=== PATIENT | female | born 1985 | race Caucasian/White ===

== ENCOUNTER 2021-12-26 13:07 | Emergency (ER) | payer OTHER, SELFPAY ==
--- NOTE | ~2021-12-26 | XR_ITS ---
EXAMINATION: XR knee RT min 4V DATE: 12/26/2021 13:59 INDICATION: Right knee pain, initial encounter TECHNIQUE: Four views of the right knee were obtained. COMPARISON: None. FINDINGS: Alignment is normal. There is a nondisplaced fracture of the medial tibial plateau. Joint s paces are normal with no erosions. There is a small knee joint effusion. Soft tissues are unremarkab le. IMPRESSION: 1. Nondisplaced fracture of the medial tibial plateau. Reviewed, dictated and finalized at location A.
[2021-12-26 13:30] VITALS: BP 149/82; PULSE 80; RESP 20; TEMP 36.8; O2SAT 100
--- NOTE | 2021-12-26 14:23 | ED.LOWEXIN ---
HPI - Extremity Injury (Lower) General Chief Complaint: Extremity Injury, Lower Stated Complaint: Right knee injury Time Seen by Provider: 12/26/21 14:24 Source: patient and RN notes reviewed Mode of arrival: ambulatory Limitations: no limitations History of Present Illness HPI Narrative: 36-year-old female presents with concern for right knee injury. Reports several days ago she was walking when the knee twisted. She reports lateral knee pain. Reports when she steps on it a certain way she has severe pain in the lateral knee. Reports yesterday she started wearing a knee brace. She reports she is taken Tylenol. She reports swelling. complaint: knee injury Related Data Home Medications Medication Instructions Recorded Confirmed No Home Medications 12/26/21 12/26/21 Allergies Allergy/AdvReac Type Severity Reaction Status Date / Time morphine Allergy Intermediate Itching Verified 12/26/21 14:23 Review of Systems Review of Systems: CONSTITUTIONAL: Denies malaise, chills, sweats, or fever. SKIN: Denies rash or itching, open skin, laceration, abrasion, redness, warmth MUSCULOSKELETAL: Reports left knee pain with swelling NEUROLOGIC: Denies numbness, weakness All systems reviewed & are unremarkable except as noted in HPI and below PMFSH Comments At time of signature, agree with nursing past medical, surgical, social and family history. There is no relevant family history pertinent to the presenting complaint Exam Narrative: GENERAL: Well-appearing, well-nourished, and in no acute distress. HEAD: Normocephalic EYES: PERRLA ENT: Nares clears. Mucous membranes moist. NECK: Supple. CHEST: No respiratory distress. Speaks in full sentences. HEART: Regular rate and rhythm. EXTREMITIES: Left lower extremity has grossly normal range of motion and strength and sensation. Mild edema SKIN: Warm, dry, no visible rash. NEURO: Alert and oriented x3. PSYCH: Normal mood and affect Course Course Emergency Course: Patient is aware of diagnosis, understands and agrees to treatment plan. Anticipatory guidance given. Patient agrees to follow-up as directed and is aware of reasons to seek care at the emergency department. Portions of this record may have been created with voice recognition software Level of Care: Express Care Visit Vital Signs Vital signs: Vital Signs Temperature 98.3 F 12/26/21 13:30 Pulse Rate 80 12/26/21 13:30 Respiratory Rate 20 12/26/21 13:30 Blood Pressure 149/82 H 12/26/21 13:30 Pulse Oximetry 100 12/26/21 13:30 Temperature 98.3 F 12/26/21 13:30 Pulse Rate 80 12/26/21 13:30 Respiratory Rate 20 12/26/21 13:30 Blood Pressure 149/82 H 12/26/21 13:30 Pulse Oximetry 100 12/26/21 13:30 Reviewed. MDM - Extremity Injury (Lower) MDM Narrative Medical decision making narrative: Patients injury and pain is consistent with musculoskeletal etiology. No signs of neurological or vascular compromise on exam. Compartments and tissues are soft without signs of compartment syndrome. Pain is felt appropriate for further evaluation on an outpatient basis. Imaging Data My impression: Images reviewed, interpreted by radiologist, agree, see report. Radiologist's impression: EXAMINATION: XR knee RT min 4V DATE: 12/26/2021 13:59 INDICATION: Right knee pain, initial encounter TECHNIQUE: Four views of the right knee were obtained. COMPARISON: None. FINDINGS: Alignment is normal. There is a nondisplaced fracture of the medial tibial plateau. Joint spaces are normal with no erosions. There is a small knee joint effusion. Soft tissues are unremarkable. IMPRESSION: 1. Nondisplaced fracture of the medial tibial plateau. Critical Care Time Critical Care Time Critical Care Time: No Discharge Plan Discharge Clinical Impression: Fracture of tibial plateau Qualifiers: Encounter type: initial encounter Fracture type: closed Laterality: right Qualified Code(s): S82.141A - Displaced
== END 2021-12-26 14:40 | disposition home or self-care (01) ==
PROVIDERS: Emergency Provider Nurse Practitioner
DX: S82.141A Displaced bicondylar fracture of right tibia, initial encounter for closed fracture (principal); X50.9XXA Other and unspecified overexertion or strenuous movements or postures, initial encounter; Y93.01 Activity, walking, marching and hiking
CPT/HCPCS: 73564; 99204; G0463

== ENCOUNTER 2022-10-19 09:34 | Emergency (ER) | payer OTHER, SELFPAY ==
[2022-10-19 09:56] VITALS: BP 153/106; PULSE 96; RESP 18; TEMP 36.3; O2SAT 100
--- NOTE | 2022-10-19 10:04 | ED.BACK ---
HPI - Back Pain/Injury General Chief Complaint: Back Pain/Injury Stated Complaint: Low Back Pain Time Seen by Provider: 10/19/22 10:12 Source: patient and RN notes reviewed Mode of arrival: ambulatory Limitations: no limitations History of Present Illness HPI Narrative: 37-year-old female presents concern for one-week history and low back pain. She denies any injury or trauma. She reports pain is constant. Reports it hurts to stand, hurts to sit she. She denies any significant exacerbating or relieving factors. She denies loss of bowel or bladder function, weakness in any extremity, perianal anesthesia, abdominal pain, fever. She denies dysuria, frequency, urgency. Reports chills MD elicited complaint: back pain Related Data Allergies Allergy/AdvReac Type Severity Reaction Status Date / Time morphine Allergy Intermediate Itching Verified 10/19/22 10:00 Review of Systems Review of Systems: CONSTITUTIONAL: Denies malaise, sweats, or fever. Reports chills CARDIOVASCULAR: Denies chest pain, palpitations, or edema. RESPIRATORY: Denies cough or dyspnea. GASTROINTESTINAL: Denies abdominal pain, nausea, vomiting, diarrhea, bloody, or mucous stools. Loss of bowel function GENITOURINARY: Denies dysuria, frequency, urgency or hematuria. Muscle bladder function, perianal anesthesia SKIN: Denies rash or itching. 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 There is no relevant family history pertinent to the presenting complaint Exam Narrative: GENERAL: Well-appearing, well-nourished, and in no acute distress. HEAD: Normocephalic, atraumatic. EYES: PERRLA and EOMI. NECK: Supple. No lymphadenopathy. CHEST: Clear to auscultation. No respiratory distress. HEART: Regular rate and rhythm. Distal pulses palpable and equal, cap refill <3 seconds ABDOMEN: Soft, nontender, nondistended, normal active bowel sounds, no palpable or pulsatile masses. No CVA tenderness MUSCULOSKELETAL: Normal range of motion and strength in all extremities; 5/5 strength with hip flexion and extension, dorsiflexion and extension, knee flexion and extension, plantar flexion and extension. Normal sensation in dermatomal distributions with sensitivity to light touch and pain. No midline back tenderness to palpation. No paraspinal tenderness. Transfers from sitting to standing. SKIN: Warm, dry, no rash. No ecchymosis, erythema, open wounds to back. NEURO: No focal deficits. Alert and oriented x3. Reflexes intact. Normal gait. PSYCH: Normal mood and affect Course Course Emergency Course: Patient is aware of diagnosis, understands and agrees to treatment plan. Anticipatory guidance given. Patient agrees to follow-up as directed and is aware of reasons to seek care at the emergency department. Portions of this record may have been created with voice recognition software Level of Care: Express Care Visit Vital Signs Vital signs: Vital Signs Temperature 97.4 F L 10/19/22 09:56 Pulse Rate 96 10/19/22 09:56 Respiratory Rate 18 10/19/22 09:56 Blood Pressure 153/106 H
== END 2022-10-19 10:35 | disposition home or self-care (01) ==
PROVIDERS: Emergency Provider Nurse Practitioner; PCP Emergency Medicine
DX: N39.0 Urinary tract infection, site not specified (principal); F17.210 Nicotine dependence, cigarettes, uncomplicated
CPT/HCPCS: 81003; 87077; 87086; 87186; 99213; G0463

== ENCOUNTER 2022-11-14 14:45 | Emergency (ER) | payer OTHER, SELFPAY ==
[2022-11-14 14:50] VITALS: BP 138/92; PULSE 93; RESP 20; TEMP 37.1; O2SAT 100
--- NOTE | 2022-11-14 15:50 | ED.FEMALEGU ---
HPI - Female Genitourinary General Chief complaint: Urogenital-Female Stated complaint: poss uti Time Seen by Provider: 11/14/22 15:40 Source: patient, RN notes reviewed and old records reviewed Mode of arrival: ambulatory Limitations: no limitations History of Present Illness HPI Narrative: 37 year old female who presents to [facility] are with complaints of lower back pain and flank pain at times for the past 4 days. Patient reports that she was treated for UTI 2 weeks ago and completed all doses of prescribed medications with symptoms resolved till present symptoms. Patient has been taking Tylenol for her discomfort.Patient reports no vaginal discharge or concern for STD exposure. MD elicited complaint: UTI Pertinent past history: other (past UTI) Onset (ago): day(s) (4) Location of symptoms: low back and flank Severity scale (1-10): 6 Treatment prior to arrival: acetaminophen Related Data Allergies Allergy/AdvReac Type Severity Reaction Status Date / Time morphine Allergy Intermediate Itching Verified 10/19/22 10:00 Review of Systems Review of Systems: CONSTITUTIONAL: Denies fever, chills, or sweats. CARDIOVASCULAR: Denies chest pain, palpitations, or edema. RESPIRATORY: Denies cough or dyspnea. GASTROINTESTINAL: Denies abdominal pain, nausea, vomiting, or diarrhea. GENITOURINARY: Reports dysuria, frequency, urgency. Reports low back pain and also flank pain no hematuria. SKIN: Denies rash or itching. MUSCULOSKELETAL: low back pain or myalgia. Reports some CVA tenderness NEUROLOGIC: Denies headache All systems reviewed & are unremarkable except as noted in HPI and below [facility] Past Medical History Medical History (Updated 11/15/22 @ 09:54 by Roxana Arriaga NP) Anxiety Tibial plateau fracture, right UTI (urinary tract infection) Family History Family History Other Hypertension Social History Social History Smoking packs per day: 1 Smoking cigarettes per day: 20.0 Years smoked: 20 Smoking pack-years: 20.00 Smoking status: Current every day smoker Tobacco type: cigarettes Alcohol intake: current Drinks per week: 10 Substance use: current Substance use type: marijuana Living arrangements: with family Occupation/Education: occupation 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 There is no relevant family history pertinent to the presenting complaint Exam Narrative: GENERAL: Well-appearing, well-nourished, and in no acute distress. HEAD: Normocephalic, atraumatic. NECK: Supple.no lymphadenopathy CHEST: Clear to auscultation. No respiratory distress.SAO2 100% on room air HEART: Regular rate and rhythm. No murmur heard. Normal peripheral pulses. ABDOMEN: Soft, nontender, nondistended, normal active bowel sounds. CVA tenderness and some low back pain EXTREMITIES: Normal range of motion. No edema. SKIN: Warm, dry, no rash. NEURO: No focal deficits. Alert and oriented x3. Course Course Emergency Course: Patient is aware of diagnosis, understands and agrees to treatment plan.? Anticipatory guidance given.? Patient agrees to follow-up as directed and is aware of reasons to seek care at the emergency department. Portions of this record may have been created with voice recognition software Level of Care: Express Care Visit Vital Signs Vital signs: Vital Signs Temperature 37.1 C 11/14/22 14:50 Pulse Rate 93 11/14/22 14:50 Respiratory Rate 20 11/14/22 14:50 Blood Pressure 138/92 H 11/14/22 14:50 Pulse Oximetry 100 11/14/22 14:50 Oxygen Delivery Room Air 11/14/22 14:50 Temperature 37.1 C 11/14/22 14:50 Pulse Rate 93 11/14/22 14:50 Respiratory Rate 11/14
== END 2022-11-14 16:15 | disposition home or self-care (01) ==
PROVIDERS: Emergency Provider Registered Nurse; PCP Emergency Medicine
DX: N39.0 Urinary tract infection, site not specified (principal); F17.210 Nicotine dependence, cigarettes, uncomplicated
CPT/HCPCS: 81003; 87077; 87086; 87186; 99213; G0463